=== PATIENT | female | born 1940 | race Caucasian/White ===

== ENCOUNTER 2024-08-30 20:04 | Emergency (ER) | payer BC ==
[~2024-08-30] VITALS: Ht 162.6 cm; Wt 57.6 kg
[2024-08-30 21:49] VITALS: BP 156/88; TEMP 208; O2SAT 97
== END 2024-08-30 21:49 | disposition home or self-care (01) ==
LOC: EDBD 20:04 → ER 20:04
DX: S01.01XA Laceration without foreign body of scalp, initial encounter (principal); D32.9 Benign neoplasm of meninges, unspecified; R51.9 Headache, unspecified; M06.9 Rheumatoid arthritis, unspecified; Z88.0 Allergy status to penicillin; W18.30XA Fall on same level, unspecified, initial encounter; Y93.9 Activity, unspecified; Y92.9 Unspecified place or not applicable; Y99.9 Unspecified external cause status
CPT/HCPCS: 70450; A4606; A4663